=== PATIENT | female | born 1980 | race Caucasian/White ===

== ENCOUNTER 2016-12-09 10:22 | Emergency (ER) | payer OTHER ==
[~2016-12-09] VITALS: Ht 162.6 cm; Wt 70.8 kg
[~2016-12-09 10:22] MED LIST: CIPRO 500MG TA500 MG PO; FLEXERIL10 MG PO; FLOMAX 0.4MG C0.4 MG PO; IBU-8800 MG PO; KEFLEX 500MG.500 MG PO; LORTAB 5/500 501 TAB PO; NORCO 325 MG-51 TAB PO; PYRIDIUM 200MG200 MG PO
[2016-12-09] MEDS ORDERED: NYSTATIN SUSPEN60 ML PO (11:01)
[2016-12-09 11:02] VITALS: BP 135/78
--- NOTE | 2016-12-09 11:02 | Urgent Treatment Center Report ---
History of Present Issue Date/Time Seen by Provider 12/09/16 1042 Visit Reason Pt arrived:Walked Presenting Problem:PT STATES SHE IS IN THE PROCESS OF BEING DISGNOSED WITH LUPUS. PT STATES SHE IS ON 20MG OF PREDNISONE TID AND SHE THINKS IT HAS DEVELOPED THRUSH IN HER MOUTH. PT IS ALSO C/O COUGH AND CHEST CONGESTION. Location if Accident: Onset of symptoms date/time:/ or onset unknown for:MEDICAL HX UNKNOWN Have you (or family members/close friends) recently traveled outside the [place]? N If Yes, where/when: Have you had exposure to infectious disease within the past month? TB? Other? Specify: c/o "I think I have thrush". Thin white coating to tongue, mouth "martinez a little ", sensation of film on tongue and throughout mouth all since started prednisone less then one week ago. Currently taking 20mg TID. Reports PCP suspects Lupus. + HOSSEIN w/ rhemo referral. Appt in Jan. Adverse effect w/ cymbalta and plaquenil "so now he is trying steroids". White coating removes w/ brushing. Hasn't taken or tried anything else. Cough and body aches are unchanged "and that is the reason for all this testing and now steroids". Source patient Exam Limitations no limitations ALLERGIES Coded Allergies: Sulfa (Sulfonamide Antibiotics) (12/09/16) duloxetine (From CYMBALTA) (12/09/16) hydroxychloroquine (From PLAQUENIL) (12/09/16) morphine (12/09/16) History Medical History General CAD? No Angina: No [place]: No Hypertension? No Hyperlipidemia? No CHF? No DVT? No PE? No COPD? No Asthma? No Anemia? No GERD? No Gastric ulcers? No GI Bleed? No Hernia? No Thyroid Problems? No Hypothyroidism? No CVA? No Seizures? No Diabetes? No Renal Insuffiency? No UTI? No Stones? Yes BPH? No GB Disease: No Nephritic Syndrome? No Asplenia? No Hepatitis? No Sickle Cell Disease? No Arthritis? No Migraines? No Cataracts? No Glaucoma? No MRSA? No HIV? No TB? No Anxiety? No Depression? No Cancer? No More? No Immunization HX DT/Tetanus 5-10 YRS Flu THIS YR Pneumonia NEVER Surgical Hx Previous Surgery?Y C SECTION DEC 06 IUD INSERTION WISDOM TEETH TONSILLECTOMY Family History Family HX Diabetes No CAD No Hypertension No Hyperlipidemia No Cancer Yes TB No Social History Smoking Hx Smoker: Current Every Day Smoker Tobacco: Yes Type Cigarettes Packs/day < 1 Pack Alcohol Alcohol: No Review of Systems All Other Systems Reviewed and Negative Constitutional denies chills, denies fever ENT see HPI. denies: ear pain, mouth swelling, throat pain, throat swelling. Respiratory denies shortness of breath Physical Exam Vital Signs Vital Signs Date Time Temp Pulse Resp B/P Pulse O2 O2 Flow FiO2 Ox Delivery Rate 12/09 1102 99.1 80 20 135/78 97 12/09 1031 99.1 80 20 135/78 97 General Appearance normal appearance, no apparent distress Ear, Nose, Throat normal pharynx, mamie EACs and TMs normal, mamie nares normal, very thin, barely visible white patti to edges of tongue bilaterally but also inside mamie cheeks; no lesions Neck non-tender, supple Respiratory Status Yes: trachea midline, chest symmetrical, non productive cough. No: respiratory distress, use of accessory muscles, productive cough. Lung Sounds anterior: lungs clear. posterior: lungs clear. bilateral: lungs clear. Cardiovascular regular rate/rhythm, no peripheral edema, no murmur Neurologic alert, oriented x 3 Skin normal color, warm/dry Lymphatic no adenopathy Medical Decision Making LABS/Meds/Orders Pt receiving controlled substance in ED? No Departure Departure Time of Disposition 1059 Disposition DC Home or Self Care(routine) Clinical Impression Primary Impression: Oral thrush Secondary Impressions: Long-term current use of steroids Condition STABLE Referrals Jorge Gasca MD (Family) IMMEDIATELY for new or worsening symptoms OR no noticeable improvement over the next 72 hours. 911 for difficulty breathing. Patient Instructions DI for Thrush Additional Instructions Read attached education Use mouth wash medication as we discussed be sure to follow up with primary care and notify him of symptoms and treatment today Discharge Counseling Counseled pt/family regarding diagnosis, medications/RX, home care, follow up needs Prescriptions Current Visit Scripts NYSTATIN (Nystatin Suspension; 60ML Bottle) 5 ML PO QID #140 ML swish and spit at 1110
== END 2016-12-09 11:03 | disposition home or self-care (01) ==
LOC: UTC 10:22
DX: B37.0 Candidal stomatitis (principal); Z79.52 Long term (current) use of systemic steroids

== ENCOUNTER 2017-01-05 12:24 | Emergency (ER) | payer MEDICAID ==
[~2017-01-05] VITALS: Ht 162.6 cm; Wt 70.3 kg
[~2017-01-05 12:24] MED LIST changes: +NYSTATIN SUSPEN60 ML PO
[2017-01-05] MEDS ORDERED: NYSTATIN SU60 ML/BOT PO (12:44)
[2017-01-05] MEDS ORDERED: PROVENTIL0.09 MG/Ac IH (12:44)
--- NOTE | 2017-01-05 12:44 | Emergency Room Report ---
History of Present Illness Time Seen by 1237 Presenting Problem in Triage Pt arrived:Walked Presenting Problem:PT REPORTS THINKS HAS THRUSH ON TONGUE, STATES IT APPROXIMATELY 1 MONTH AGO STATES NOTICED WHITE AREA ON TONGUE YESTERDAY. REPORTS COUGH AND CHEST CONGESTION X1 WEEK. 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 N Clinical Suspician of Infection? N Mental Status: 1 - Regular (Normal Baseline) Sepsis Risk:Low Sepsis Risk Have you (or family members/close friends) recently traveled outside the [place]? N If Yes, where/when: Have you had exposure to infectious disease within the past month? N TB? Other? Specify: Patient with hx of thrush and used Nystatin one month or so ago for a few days. She is on minocycline and before that, on steroids for possible AID, with referral to manager home improvement pending. She has had a tight cought the last week with bronchospasm at night. No vomiting, no fever, no flu sx. No new rashes. ALLERGIES Coded Allergies: Sulfa (Sulfonamide Antibiotics) (12/09/16) duloxetine (From CYMBALTA) (12/09/16) hydroxychloroquine (From PLAQUENIL) (12/09/16) morphine (12/09/16) History Medical History General CAD? No Angina: No [place]: No Hypertension? No Hyperlipidemia? No CHF? No DVT? No PE? No COPD? No Asthma? No Anemia? No GERD? No Gastric ulcers? No GI Bleed? No Hernia? No Thyroid Problems? No Hypothyroidism? No CVA? No Seizures? No Diabetes? No Renal Insuffiency? No End Stage Renal Disease? No UTI? No Stones? Yes BPH? No GB Disease: No Nephritic Syndrome? No Asplenia? No Hepatitis? No Sickle Cell Disease? No Arthritis? No Migraines? No Cataracts? No Glaucoma? No MRSA? No HIV? No TB? No Anxiety? No Depression? No Cancer? No More? 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 Respiratory see HPI Musculoskeletal see HPI (?AID) Physical Exam Vital Signs Vital Signs Date Time Temp Pulse Resp B/P Pulse O2 O2 Flow FiO2 Ox Delivery Rate 01/05 1226 98.9 96 18 143/79 99 General Appearance normal appearance, WD/WN, no apparent distress Eye Exam - bilateral eye normal exam, bilateral eye PERRL, bilateral eye EOMI Ear, Nose, Throat hearing grossly normal, normal ENT inspection, normal pharynx, tonsils removed. No plaques or erythema. No exudates. No lesions. Base of tongue and buccal mucosa carefully examined and no thrush. Neck normal inspection, non-tender, supple, full range of motion Respiratory Status Yes: trachea midline, chest symmetrical, non tender chest, non productive cough. No: respiratory distress, tender on palpation, use of accessory muscles, pain on inspiration, pain on expiration, productive cough. Lung Sounds bilateral: normal breath sounds, lungs clear. Cardiovascular normal exam, regular rate/rhythm, no peripheral edema, no gallop, no JVD, no murmur, no rub, normal peripheral pulses Gastrointestinal normal bowel sounds, normal exam, non tender, soft, no organomegaly, no guarding, no rebound Strength 5 Upper Ext (L), 5 Upper Ext (R), 5 Lower Ext (L), 5 Lower Ext (R) Neurologic alert, normal exam, no motor/sensory deficits, oriented x 3 Glascow Coma Scale Glascow Coma Scale Response Value EYE response: 4 Spontaneously 4 MOTOR response: 6 OBEYS 6 VERBAL response: 5 Oriented & Converses 5 Total 15 Skin intact, normal color, warm/dry Medical Decision Making LABS/Meds/Orders Pt receiving controlled substance in ED? No Departure Departure Time of Disposition 1240 Disposition DC Home or Self Care(routine) Clinical Impression Primary Impression: Bronchitis Secondary Impressions: History of thrush Condition STABLE Referrals Azucena FARAH,Yohan Rueda (Family) Patient Instructions Acute Bronchitis Additional Instructions Rx Nystatin for possible thrush: use while on minocycline and talk with Dr. Zeng about this medication. Rx Albuterol inhaler as directed. See Dr. Zeng in two to three days for follow up. Discharge Counseling Counseled pt/family regarding diagnosis, medications/RX, home care, follow up needs Prescriptions Current Visit Scripts NYSTATIN (Nystatin Susp 100,000 Units/Ml 60ML) 5 ML PO QID #200 ML Albuterol Sulfate (Proventil Hfa) 0.09 MG IH Q4HP PRN cough #1 INH generic HFA ok ED Critical Care Critical Care No at 6197
--- NOTE | 2017-01-05 12:44 | Emergency Room Report ---
History of Present Illness Time Seen by 1237 Presenting Problem in Triage Pt arrived:Walked Presenting Problem:PT REPORTS THINKS HAS THRUSH ON TONGUE, STATES IT APPROXIMATELY 1 MONTH AGO STATES NOTICED WHITE AREA ON TONGUE YESTERDAY. REPORTS COUGH AND CHEST CONGESTION X1 WEEK. 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 N Clinical Suspician of Infection? N Mental Status: 1 - Regular (Normal Baseline) Sepsis Risk:Low Sepsis Risk Have you (or family members/close friends) recently traveled outside the [place]? N If Yes, where/when: Have you had exposure to infectious disease within the past month? N TB? Other? Specify: Patient with hx of thrush and used Nystatin one month or so ago for a few days. She is on minocycline and before that, on steroids for possible AID, with referral to cigarette machine operator pending. She has had a tight cought the last week with bronchospasm at night. No vomiting, no fever, no flu sx. No new rashes. ALLERGIES Coded Allergies: Sulfa (Sulfonamide Antibiotics) (12/09/16) duloxetine (From CYMBALTA) (12/09/16) hydroxychloroquine (From PLAQUENIL) (12/09/16) morphine (12/09/16) History Medical History General CAD? No Angina: No [place]: No Hypertension? No Hyperlipidemia? No CHF? No DVT? No PE? No COPD? No Asthma? No Anemia? No GERD? No Gastric ulcers? No GI Bleed? No Hernia? No Thyroid Problems? No Hypothyroidism? No CVA? No Seizures? No Diabetes? No Renal Insuffiency? No End Stage Renal Disease? No UTI? No Stones? Yes BPH? No GB Disease: No Nephritic Syndrome? No Asplenia? No Hepatitis? No Sickle Cell Disease? No Arthritis? No Migraines? No Cataracts? No Glaucoma? No MRSA? No HIV? No TB? No Anxiety? No Depression? No Cancer? No More? 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 Respiratory see HPI Musculoskeletal see HPI (?AID) Physical Exam Vital Signs Vital Signs Date Time Temp Pulse Resp B/P Pulse O2 O2 Flow FiO2 Ox Delivery Rate 01/05 1226 98.9 96 18 143/79 99 General Appearance normal appearance, WD/WN, no apparent distress Eye Exam - bilateral eye normal exam, bilateral eye PERRL, bilateral eye EOMI Ear, Nose, Throat hearing grossly normal, normal ENT inspection, normal pharynx, tonsils removed. No plaques or erythema. No exudates. No lesions. Base of tongue and buccal mucosa carefully examined and no thrush. Neck normal inspection, non-tender, supple, full range of motion Respiratory Status Yes: trachea midline, chest symmetrical, non tender chest, non productive cough. No: respiratory distress, tender on palpation, use of accessory muscles, pain on inspiration, pain on expiration, productive cough. Lung Sounds bilateral: normal breath sounds, lungs clear. Cardiovascular normal exam, regular rate/rhythm, no peripheral edema, no gallop, no JVD, no murmur, no rub, normal peripheral pulses Gastrointestinal normal bowel sounds, normal exam, non tender, soft, no organomegaly, no guarding, no rebound Strength 5 Upper Ext (L), 5 Upper Ext (R), 5 Lower Ext (L), 5 Lower Ext (R) Neurologic alert, normal exam, no motor/sensory deficits, oriented x 3 Glascow Coma Scale Glascow Coma Scale Response Value EYE response: 4 Spontaneously 4 MOTOR response: 6 OBEYS 6 VERBAL response: 5 Oriented & Converses 5 Total 15 Skin intact, normal color, warm/dry Medical Decision Making LABS/Meds/Orders Pt receiving controlled substance in ED? No Departure Departure Time of Disposition 1240 Disposition DC Home or Self Care(routine) Clinical Impression Primary Impression: Bronchitis Secondary Impressions: History of thrush Condition STABLE Referrals Azucena FARAH,Yohan Rueda (Family) Patient Instructions Acute Bronchitis Additional Instructions Rx Nystatin for possible thrush: use while on minocycline and talk with Dr. Zeng about this medication. Rx Albuterol inhaler as directed. See Dr. Zeng in two to three days for follow up. Discharge Counseling Counseled pt/family regarding diagnosis, medications/RX, home care, follow up needs Prescriptions Current Visit Scripts NYSTATIN (Nystatin Susp 100,000 Units/Ml 60ML) 5 ML PO QID #200 ML Albuterol Sulfate (Proventil Hfa) 0.09 MG IH Q4HP PRN cough #1 INH generic HFA ok ED Critical Care Critical Care No at 8914
[2017-01-05 13:40] VITALS: BP 143/79
--- OUTSIDE RECORDS SUMMARY | 2017-01-09 05:14 | External Medical Summary Rpt | CCD ---
Author Author ROSAS Address Unknown Phone Purpose Continuity of Care Document - through 2016
--- OUTSIDE RECORDS SUMMARY | 2017-01-09 05:14 | External Medical Summary Rpt | CCD ---
Author Author , ROSAS PILLAI Address Unknown Phone [email or web address] Purpose Continuity of Care Document - through 2016
--- OUTSIDE RECORDS SUMMARY | 2017-01-09 05:14 | External Medical Summary Rpt | CCD ---
Demographics Preferred Language Tristanian Marital Status Unknown Mandaeism Affiliation Unknown Race Unknown Ethnic Group Unknown Author Author , ROSAS PILLAI Address Unknown Phone Immunization No patient found.
--- OUTSIDE RECORDS SUMMARY | 2017-01-09 05:14 | External Medical Summary Rpt | CCD ---
Author Author , ROSAS PILLAI Address Unknown Phone [email or web address] Purpose Continuity of Care Document - through 2016
--- OUTSIDE RECORDS SUMMARY | 2017-01-09 05:14 | External Medical Summary Rpt | CCD ---
Demographics Preferred Language Surinamese Marital Status Unknown Latter Day Affiliation Unknown Race Unknown Ethnic Group Unknown Author Author , ROSAS PILLAI Address Unknown Phone Immunization No patient found.
--- OUTSIDE RECORDS SUMMARY | 2017-01-09 05:15 | External Medical Summary Rpt ---
Author Author ROSAS Beltrán, ROSAS Beltrán Organization [employer] Address Unknown Phone Unavailable
== END 2017-01-05 13:40 | disposition home or self-care (01) ==
LOC: ER 12:24
DX: B37.0 Candidal stomatitis (principal); Z88.2 Allergy status to sulfonamides; F17.210 Nicotine dependence, cigarettes, uncomplicated

== ENCOUNTER 2017-03-07 12:30 | Emergency (ER) | payer MEDICAID ==
[~2017-03-07] VITALS: Ht 162.6 cm; Wt 73.0 kg
[~2017-03-07 12:30] MED LIST changes: +NYSTATIN SU60 ML/BOT PO; +PROVENTIL0.09 MG/Ac IH
[2017-03-07] MEDS ORDERED: OMEPRAZOLE20 MG PO (12:38)
[2017-03-07] MEDS ORDERED: GABAPENTIN300 M1 PO (12:38)
[2017-03-07] MEDS ORDERED: BUPROPION HCL150 M1 PO (12:39)
--- OUTSIDE RECORDS SUMMARY | 2017-03-07 13:04 | External Medical Summary Rpt ---
Author Author [facility] Organization [facility] Address Unknown Phone Unavailable Care Team Providers Care Photographic Technician Name Role Phone MAU, (REF) PCP [phone] Encounter RIGOBERTO IQBAL [id number] Date(s): 02/16/17 - 02/16/17 [facility] [address] [place] [address]- [phone] Discharge Disposition: OP Self Care or Home Attending Physician: ALBINA ASTORGA MD-INT Admitting Physician: ALBINA ASTORGA MD-INT Referring Physician: ALBINA ASTORGA MD-INT Reason for Visit SACROCOCCYGEAL DISORDERS, NOT ELSEWHERE CLASSIFIED Vital Signs No data available for this section Problem List No data available for this section Allergies, Adverse Reactions, Alerts No data available for this section Medications No data available for this section Results No data available for this section Immunizations No data available for this section Procedures No data available for this section Social History No data available for this section Assessment and Plan No data available for this section Hospital Discharge Instructions No data available for this section
--- OUTSIDE RECORDS SUMMARY | 2017-03-07 13:04 | External Medical Summary Rpt ---
Author Author [facility] Organization [facility] Address Unknown Phone Unavailable Care Team Providers Care Parts Runner Name Role Phone MAU, (REF) PCP [phone] Encounter RIGOBERTO IQBAL [id number] Date(s): 02/16/17 - 02/16/17 [facility] [address] [place] [address]- Discharge Disposition: OP Self Care or Home [...]
--- OUTSIDE RECORDS SUMMARY | 2017-03-07 13:05 | External Medical Summary Rpt | CCD ---
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 5 00 EA Ac IT 67 -0 -[address] ti HR 90 3- 1- 0 00 SI ve OM 96 20 20 50 DE YC 10 17 17 78 IN 5 08 PH AR 25 MA 0 CY MG OF TA CY BL NT ET HI AN A IN C BE 67 11 12 30 10 00 EA Ac NZ 87 -0 -[address] ti ON 70 3- 1- 00 00 SI ve AT 57 20 20 50 DE AT 30 17 17 78 E 5 09 PH 10 AR 0 MA MG CY CA OF PS CY UL NT E HI AN A IN C BU 60 10 11 60 30 00 EA Ac OR 50 -3 -[address] ti OP 50 1- 4- 00 00 SI ve IO 15 20 20 50 DE N 80 17 17 72 HC 1 79 PH L AR 75 MA CY MG OF TA CY BL NT ET HI AN A IN C GA 16 10 11 9. 6 00 EA Ac BA 71 -3 -[address] ti PE 40 1- 4- 0 00 SI ve NT 66 20 20 50 DE IN 10 17 17 72 1 80 PH 10 AR 0 MA MG CY CA OF PS CY UL NT E HI AN A IN C NI 00 10 11 28 28 00 EA Ac CO 53 -3 -[address] ti TI 65 1- 4- 00 00 SI ve NE 89 20 20 50 DE 68 17 17 72 21 8 81 PH AR MG MA /2 CY 4H R OF PA CY TC NT H HI AN A IN C [place] 00 10 11 [address] 60 -1 -[address] ti AT 31 2- 0- 00 00 SI ve IN 48 20 20 0 50 DE 15 17 17 48 10 8 70 PH 0, AR 00 MA 0 CY UN IT OF /M CY L NT HODGES HI SP AN A IN C VE 00 10 11 18 30 00 EA Ac NT 17 -1 -[address] ti OL 30 2- 0- 00 00 SI ve IN 68 20 20 50 DE 22 17 17 48 HF 0 68 PH A AR 90 MA CY MC G OF IN CY VELAZQUEZ NT LE HI R AN A IN C
--- OUTSIDE RECORDS SUMMARY | 2017-03-07 13:05 | External Medical Summary Rpt | CCD ---
Author Author , ROSAS PILLAI Address Unknown Phone [email or web address] Purpose Continuity of Care Document - 02-05-2017 through 2016 Medications Na ND Rx Da Fi Fi [...] 10 11 60 30 00 EA Ac [place] 50 -3 -[address] ti [...]
--- OUTSIDE RECORDS SUMMARY | 2017-03-07 13:05 | External Medical Summary Rpt | CCD ---
Demographics Preferred Language Mauritian Marital Status Unknown Cheondoism Affiliation Unknown Race Unknown Ethnic Group Unknown Author Author , ROSAS PILLAI Address Unknown Phone Immunization No patient found.
--- OUTSIDE RECORDS SUMMARY | 2017-03-07 13:05 | External Medical Summary Rpt | CCD ---
Author Author , ROSAS PILLAI Address Unknown Phone [email or web address] Purpose Continuity of Care Document - 02-05-2017 [...] 10 11 60 30 00 EA Ac [place] 50 -3 -[address] [...]
--- OUTSIDE RECORDS SUMMARY | 2017-03-07 13:05 | External Medical Summary Rpt | CCD ---
Author Author , ROSAS PILLAI Address Unknown Phone [email or web address] Purpose Continuity of Care Document - 02-05-2017 [...] 10 11 60 30 00 EA Ac [place] 50 -3 -[address] [...]
--- OUTSIDE RECORDS SUMMARY | 2017-03-07 13:05 | External Medical Summary Rpt | CCD ---
Demographics Preferred Language Burkinan Marital Status Unknown Taoist Affiliation Unknown Race Unknown Ethnic Group Unknown Author Author , ROSAS PILLAI Address Unknown Phone Immunization No patient found.
--- NOTE | 2017-03-07 13:18 | Emergency Room Report ---
History of Present Illness Time Seen by [id number] Presenting Problem in Triage Pt arrived:Walked Presenting Problem:PT C/O HEADACHE ON THE RIGHT SIDE OF HER HEAD. ADVISES IT HAS BEEN GOING ON FOR A WEEK. SHE HAS BEEN ON ANTIBIOTICS AND STEROIDS FOR HER EARS WITH NO RELIEF Onset of symptoms date/time:/ or onset unknown for:MEDICAL HX UNKNOWN Treatment Prior to Arrival: [employer] Provided by: Sepsis Risk Assessment: Temp: 98.0 B/P: 149/86 MAP: 107 Pulse: 67 Resp: 16 Recent fever? N Clinical Suspician of Infection? N Mental Status: 1 - Regular (Normal Baseline) Sepsis Risk:Low Sepsis Risk Have you (or family members/close friends) recently traveled outside the [place]? N If Yes, where/when: Have you had exposure to infectious disease within the past month? N TB? Other? Specify: Source patient, RN notes reviewed, old records Exam Limitations no limitations Comment pain rt frontal and temporal area with no fever/rash or trauma - pt has been on meds as noted and has hx of garay in past but no neuro and no speech sx Cardiac Chest Pain Chest pain indicative of cardiac No Timing/Duration this evening Severity moderate ALLERGIES Coded Allergies: Sulfa (Sulfonamide Antibiotics) (12/09/16) duloxetine (From CYMBALTA) (12/09/16) hydroxychloroquine (From PLAQUENIL) (12/09/16) morphine (12/09/16) Home Medications Active Scripts Albuterol Sulfate (Proventil Hfa) 0.09 MG IH Q4HP PRN cough #1 INH Prov: 01/05/17 Reported Medications Omeprazole (Omeprazole 20MG) 20 MG PO DAILY #60 Gabapentin 300 MG PO BID #90 Bupropion Hcl (Bupropion HCl Sr) 150 MG PO DAILY #60 History Medical History General CAD? No Angina: No PR: No Hypertension? No Hyperlipidemia? No CHF? No DVT? No PE? No COPD? No Asthma? No Anemia? No GERD? No Gastric ulcers? No GI Bleed? No Hernia? No Thyroid Problems? No Hypothyroidism? No CVA? No Seizures? No Diabetes? No Renal Insuffiency? No End Stage Renal Disease? No UTI? No Stones? Yes BPH? No GB Disease: No Nephritic Syndrome? No Asplenia? No Hepatitis? No Sickle Cell Disease? No Arthritis? No Migraines? No Cataracts? No Glaucoma? No MRSA? No HIV? No TB? No Anxiety? No Depression? No Cancer? No More? 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 Respiratory denies cough, denies shortness of breath, denies wheezing Cardiovascular denies chest pain, denies palpitations, denies syncope Gastrointestinal denies abdominal pain, denies diarrhea, denies vomiting Genitourinary denies: dysuria, frequency, hesitancy, hematuria. Musculoskeletal denies back pain, denies joint pain, denies joint swelling, denies neck pain Skin denies rash Psychiatric/Neurological see HPI, headache, denies seizure Physical Exam Vital Signs Vital Signs Date Time Temp Pulse Resp B/P Pulse O2 O2 Flow FiO2 Ox Delivery Rate 03/07 1345 16 03/07 1235 98.0 67 16 149/86 8 - WBC >12,000 or <4,000 or 10% bands? 2 or more SIRS Criteria Met? B/P:149/86 MAP:107 Creatinine >2.0? UA output<0.5ml/kg/hr for 2 hrs? Platelet count >100,000? Lactate >2.0mmol/1? INR >1.2 or PTT > than 60 sec? Evidence of Organ Dysfunction? Provider documented clinical suspician of infection? N Sepsis Criteria Count: 0 Sepsis Risk: Low Sepsis Risk General Appearance no apparent distress Eye Exam - bilateral eye PERRL, bilateral eye EOMI Ear, Nose, Throat normal ENT inspection Neck supple Respiratory Status No: respiratory distress. Lung Sounds bilateral: lungs clear. 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 No Results/Orders Laboratory Tests 03/07/17 1345: Sodium 138, Potassium 3.3 L, Chloride 101, Carbon Dioxide 30, BUN 14, Creatinine 0.8, Estimated Creat Clear 113, Estimated GFR (MDRD) 82, Glucose 89, Calcium 9.5, Total Bilirubin 0.3, AST 13 L, ALT 20, Alkaline Phosphatase 67, Total Protein 7.9, Albumin 4.2, Globulin 3.7 H, Albumin/Globulin Ratio 1.1, WBC 16.6 H, RBC 4.31, Hgb 13.8, Hct 42.6, MCV 98.9 H, RDW 12.3, Plt Count 377, MPV 7.3 L, Gran % 77.7, Gran # 12.9 H, Total Counted 100, Lymphocytes % 16.1, Monocytes % 4.4, Eosinophils % 1.5, Basophils % 0.4, Neutrophils 74, Lymphocytes (Manual) 11, Lymphocytes # 2.7, Monocytes (Manual) 6, Monocytes # 0.7, Eosinophils # 0.2, Eosinophils # (Manual) 3, Basophils # 0.1, Atypical Lymphocytes 6 H, Platelet Estimate NORMAL, PUBS MCHC 32.4, ESR 10, MCH 32.1 H Current Medication Orders Sig/Samira Start time Last Medication Dose Route Stop Time Status Admin Ketorolac 30 MG ONCE ONE 03/07 1345 DC 03/07 Tromethamine IV 03/07 134 1345 Methylprednisolone 125 MG ONCE ONE 03/07 1345 DC 03/07 Sodium Succinate IV 03/07 1346 1345 Methylprednisolone 0 .STK-MED ONE 03/07 1345 DC Sodium Succinate .ROUTE Sodium Chloride 10 ML PRN PRN 03/07 1345 AC IV 03/08 1336 Ketorolac 0 .STK-MED ONE 03/07 1344 DC Tromethamine .ROUTE Orders Procedure Date/time Status DIET-NOTHING BY MOUTH 03/07 D Active DIFFERENTIAL-WBC 03/[address] HEAD REQ 03/07 1338 Complete IV SALINE LOCK 03/07 1338 Active URINE 03/07 1338 Complete SED RATE 03/07 1338 Complete COMPLETE METABOLIC PANEL 03/07 1338 Complete CBC WITH AUTO DIFF 03/07 1338 Complete XRAY/CT/US XRAY/CT/US 1 XRAY sinus XR interpretation by reviewed by me Xray Results abnormal (sinus dis) XRAY/CT/US [address] interpretation by discussed w/radiologist Time results known: 151 CT Results normal/NAD Departure Departure Time of Disposition 1330 Disposition DC Home or Self Care(routine) Clinical Impression Primary Impression: Headache Qualifiers: Headache type: unspecified Headache chronicity pattern: acute headache Intractability: not intractable Qualified Code: R51 - Headache Condition STABLE Referrals Lillian FARAH,Brualio Gonzalez (Family) Patient Instructions DI for Headache Additional Instructions use meds and see pcp as needed Discharge Counseling Counseled pt/family regarding diagnosis, test results, medications/RX, follow up needs Prescriptions Current Visit Scripts BUTALBITAL/ASPIRIN/CAFFEINE (Fiorinal 50-325-40 MG Capsule) 1 CAP PO TID #15 CAP ED Critical Care Critical Care No at 1514
[2017-03-07 14:02] LABS: HEMOGLOBIN 13.8 g/dL (12.2-16.2); LYMPH # 2.7 K/mm3 (0.7-4.5); LYMPH % 16.1 % (10-50.0)
--- NOTE | 2017-03-07 14:16 | RADIOLOGY REPORT PS360 ---
SINUS SERIES 3 VIEWS COMPARISON: None HISTORY: Pain right-sided. TECHNIQUE: Standard paranasal sinus views FINDINGS: The maxillary and ethmoid and sphenoid sinuses appear clear. Frontal sinuses are grossly clear although there is a subtle and questionable haziness projecting over the right frontal sinus. The nasal septum is midline, the nasal bone is intact. IMPRESSION: Probably normal sinus series questionable minimal disease involving the right half of the frontal sinuses
[2017-03-07 14:24] LABS: NEUTROPHILS 74 % (42-76)
--- NOTE | 2017-03-07 14:41 | RADIOLOGY REPORT PS360 ---
CT HEAD W/O CONTRAST INDICATION: Right-sided headache for a couple of days, no previous studies for comparison. Routine axial images for brain followed by additional post-processing axial bone window images. Axial CT scanning from the base of the skull through the vertex to evaluate the brain was performed. Subsequent post processing 2-D CT bone windows were submitted to PACS and are useful to evaluate calvarium, visualize portions of paranasal sinuses, mastoids and base of skull. Multiaxial scans are obtained from the base of the skull to the vertex and performed without contrast. The base of the skull appeared normal. The ventricular system was normal. There was no ischemic infarct or bleed and there were no extra-axial fluid collections. The bony calvarium appeared intact. IMPRESSION: Negative noncontrast CT scan of the brain.
[2017-03-07] MEDS ORDERED: FIORINAL CAPSU1 EACH PO (15:12)
[2017-03-07 15:20] VITALS: BP 123/77
[2017-03-11] MEDS ORDERED: ZITHROMAX Z PA250 MG PO (19:00)
== END 2017-03-07 15:20 | disposition home or self-care (01) ==
LOC: ER 12:30
PROVIDERS: Emergency Medicine
DX: R51 Headache (principal); Z79.899 Other long term (current) drug therapy; Z79.51 Long term (current) use of inhaled steroids; Z88.5 Allergy status to narcotic agent; Z88.2 Allergy status to sulfonamides; Z88.8 Allergy status to other drugs, medicaments and biological substances